=== PATIENT | male | born 1945 | race Caucasian/White ===

== ENCOUNTER 2019-01-19 06:54 | Day surgery (SDC) | payer OTHER ==
[~2019-01-19] VITALS: Ht 180.3 cm; Wt 68.0 kg
[~2019-01-19 06:54] MED LIST: ALBU6.7H IH; ALBUHFA IH; ASPI-1181 PO; CARV3.12 PO; FAMO40TA7 PO; LIDOCAINE HCL 1% 20 ML VIAL ONE; METF-444 PO; NITR0.4T50 SL; PANT40TA PO; PANT40TA25 PO; ROSU20TA30 PO; SODIUM CHLORIDE 0.9% 1000ML 1,000 ML IV ONE
[2019-01-19 07:22] VITALS: BP 135/53
[2019-01-19 08:14] VITALS: BP 120/54
[2019-01-19 08:19] VITALS: BP 115/58
[2019-01-19 08:24] VITALS: BP 121/56
[2019-01-19 08:29] VITALS: BP 122/58
[2019-01-19 08:34] VITALS: BP 120/59
--- NOTE | 2019-01-19 08:38 | NUR ---
DC PT DC HOME VIA WC, NO DISTRES SNOTED. DENIES ANY PAIN OR DISCOMFORTS. DC INSTRUCTIONS GIVEN TO PTS BROTHER EARLIER.
== END 2019-01-19 08:38 | disposition home or self-care (01) ==
LOC: ENDO 06:54 → DAH 06:54 → ENDO 08:38
PROVIDERS: ATTEND Internal Medicine
DX: K29.50 Unspecified chronic gastritis without bleeding (principal); K22.710 Barrett's esophagus with low grade dysplasia; K29.80 Duodenitis without bleeding; K31.89 Other diseases of stomach and duodenum; K26.9 Duodenal ulcer, unspecified as acute or chronic, without hemorrhage or perforation; K29.70 Gastritis, unspecified, without bleeding; K44.9 Diaphragmatic hernia without obstruction or gangrene; J44.9 Chronic obstructive pulmonary disease, unspecified; I10 Essential (primary) hypertension; I25.10 Atherosclerotic heart disease of native coronary artery without angina pectoris; F41.9 Anxiety disorder, unspecified; F32.9 Major depressive disorder, single episode, unspecified; E11.9 Type 2 diabetes mellitus without complications; I25.2 Old myocardial infarction; Z95.5 Presence of coronary angioplasty implant and graft; Z93.1 Gastrostomy status; Z79.82 Long term (current) use of aspirin; Z79.899 Other long term (current) drug therapy; Z88.8 Allergy status to other drugs, medicaments and biological substances
CPT/HCPCS: 43239; 82948 ×2; 88305; 93005; A4606; J7030

== ENCOUNTER 2019-10-24 13:16 | Observation (INO) | payer OTHER ==
[~2019-10-24] VITALS: Ht 180.3 cm; Wt 69.5 kg
[~2019-10-24 13:16] MED LIST changes: -ALBU6.7H IH; +ALBU6.7H9 IH; -ALBUHFA IH; -LIDOCAINE HCL 1% 20 ML VIAL ONE; -PANT40TA25 PO; -ROSU20TA30 PO; +ROSU20TA31 PO; -SODIUM CHLORIDE 0.9% 1000ML 1,000 ML IV ONE
[2019-10-24 13:42] LABS: BASOPHILS % (AUTO) 0.5 % (0.0-5.0); HEMATOCRIT 43.2 % (42-54); LYMPHOCYTES % (AUTO) 10.6 % (21.0-51.0); MEAN CORPUSCULAR HEMOGLOBIN 30.5 pg (27.0-33.0); MEAN CORPUSCULAR HGB CONC 33.3 g/dL (32.0-36.0); MEAN CORPUSCULAR VOLUME 91.5 fL (79-99); MONOCYTES % (AUTO) 9.5 % (3.0-13.0); NEUTROPHILS % (AUTO) 77.2 % (40.0-77.0); PLATELET COUNT (AUTO) 148 K/uL (130-400); RED BLOOD CELL COUNT(AUTO) 4.72 MIL/uL (4.50-6.20); RED CELL DISTRIBUTION WIDTH 14.3 % (11.0-15.5)
[2019-10-24 13:57] LABS: INR 0.99 (0.85-1.15); PARTIAL THROMBOPLASTIN TIME 18.9 SEC (26.3-35.5); PROTHROMBIN TIME 10.4 SEC (9.6-11.6)
[2019-10-24 14:27] LABS: B-TYPE NATRIURETIC PEPTIDE 53 pg/mL (0-100)
[2019-10-24 15:06] LABS: ALBUMIN 3.9 g/dL (3.5-5.0); BILIRUBIN,TOTAL 0.4 mg/dL (0.2-1.0); CREATININE 0.6 mg/dL (0.5-1.5); POTASSIUM 4.5 mmol/L (3.5-5.1); TOTAL PROTEIN, SERUM 7.7 g/dL (6.0-8.3)
[2019-10-24] MEDS ORDERED: NITROGLYCERIN 1GM/1 INCH PACKET TD ONE (15:23)
[2019-10-24] MEDS ORDERED: MORPHINE SULFATE 2 MG/ML 1ML SYG IV PRN (18:00)
[2019-10-24] MEDS ORDERED: NITROGLYCERIN 0.4 MG SL TAB SL PRN (18:00)
[2019-10-24] MEDS ORDERED: FAMOTIDINE/PF 20 MG/2 ML VIAL IV ONE (23:15)
[2019-10-24] MEDS ORDERED: DEXTROSE 5%-LACTATED RINGERS 1,000 ML IV ONE (23:15)
[2019-10-25] VITALS (12 sets, daily range): BP systolic 122–141; BP diastolic 60–75
[2019-10-25] MEDS: FAMOTIDINE/PF 20 MG/2 ML VIAL IV SCH ×3 (01:00→20:37)
[2019-10-25] MEDS: DEXTROSE 5%-LACTATED RINGERS 1,000 ML IV SCH ×2 (01:00→10:34)
[2019-10-25] MEDS: ALBUTEROL SULFATE 0.083% 2.5 MG/3 ML INH IH PRN ×2 (06:07→19:30)
--- NOTE | 2019-10-25 09:45 | NUR ---
TUBE FEEDING RECOMMENDATIONS PEG IN PLACE - PENDING RD RECOMMENDATIONS. LABS REVIEWED. MEDS REVIEWED. SKIN IS INTACT. RD RECOMMENDS JEVITY 1.5, BOLUS - VIA PEG TUBE; 5.5 CANS PER DAY TO MEET PT NEEDS 1 CAN AT 6AM, 1 CAN AT 10AM, 1.5 CANS AT 2PM, 1 CAN AT 6PM, 1 CAN AT 10PM FLUSH WITH 80ML BEFORE AND AFTER EACH FEEDING + 200ML/D FOR MEDS MONITOR RESIDUALS, LABS, BM RD WILL CONTINUE TO MONITOR AND FOLLOW UP, THANK YOU. Addendum: 10/25/19 at [address] Amended: Links added.
[2019-10-25] MEDS: TAMSULOSIN HCL 0.4 MG CAP.ER.24H GT SCH (10:25)
[2019-10-25] MEDS: ENOXAPARIN SODIUM 40 MG/0.4 ML SYRINGE SQ SCH (10:30)
[2019-10-25] MEDS ORDERED: SODIUM CHLORIDE 0.9% 500ML 500 ML IV SCH (13:38)
[2019-10-25] MEDS ORDERED: NITROGLYCERIN 2 MG/VIAL VIAL IV ONE (16:03)
[2019-10-25] MEDS ORDERED: FENTANYL CITRATE PF 50 MCG/1 ML 2ML VIAL ONE (16:04)
[2019-10-25] MEDS ORDERED: IOHEXOL 350 MG/ML 100ML INFUS..BTL IV ONE (16:04)
[2019-10-25] MEDS ORDERED: MIDAZOLAM HCL 1 MG/ML 2ML VIAL ONE (16:04)
[2019-10-25] MEDS ORDERED: BIVALIRUDIN 250 MG/VIAL IV ONE (16:04)
[2019-10-25] MEDS ORDERED: LIDOCAINE HCL 2% 20ML ONE (16:04)
[2019-10-25] MEDS ORDERED: IOHEXOL-350 50ML VIAL IV ONE ×2 (16:04→16:42)
[2019-10-25] MEDS ORDERED: SODIUM CHLORIDE 0.9% 1000ML 1,000 ML IV SCH (16:59)
[2019-10-25] MEDS ORDERED: NITROGLYCERIN 0.4 MG SL TAB SL PRN (17:00)
[2019-10-25] MEDS ORDERED: METOPROLOL TARTRATE 1 MG/ML 5ML VIAL IV PRN (17:00)
[2019-10-25] MEDS ORDERED: IPRATROPIUM/ALBUTEROL SULFATE 3 ML SOLUTION IH ONE (19:17)
[2019-10-26] VITALS: BP 126/55
[2019-10-26 04:00] VITALS: BP 109/51
[2019-10-26] MEDS: ALBUTEROL SULFATE 0.083% 2.5 MG/3 ML INH IH PRN (07:04)
[2019-10-26 08:00] VITALS: BP 115/59
[2019-10-26] MEDS ORDERED: ISOS30TA6 PO (08:09)
[2019-10-26] MEDS: ENOXAPARIN SODIUM 40 MG/0.4 ML SYRINGE SQ SCH (09:00)
[2019-10-26] MEDS: FAMOTIDINE/PF 20 MG/2 ML VIAL IV SCH (09:00)
[2019-10-26] MEDS: TAMSULOSIN HCL 0.4 MG CAP.ER.24H GT SCH (09:00)
[2019-10-26 12:00] VITALS: BP 130/60
[2019-10-26] MEDS ORDERED: SUCR1TAB2 PO (12:54)
[2019-10-26] MEDS ORDERED: LANS30CA55 PO (12:54)
--- NOTE | 2019-10-26 13:29 | NUR ---
CHART REVIEWED, PT W DC ORDER, OBVS STATUS NO CM TRIGGERS, NO CONCERNS VOICED, PATIENT INDP, DETAILED CM ASSESSMENT DEFERRED AT THIS TIME Addendum: 10/26/19 at 1331 by BERONICA MELARA RN CM Amended: Links added.
== END 2019-10-26 13:38 | disposition home or self-care (01) ==
LOC: EDH 13:16 → INTOOBSV 15:00 → EDHIP 15:00 → 4CH 10-25 00:24
PROVIDERS: ADMIT Internal Medicine; ATTEND Internal Medicine
DX: I20.0 Unstable angina (principal); I25.2 Old myocardial infarction; I71.2 Thoracic aortic aneurysm, without rupture; E11.9 Type 2 diabetes mellitus without complications; I10 Essential (primary) hypertension; E78.5 Hyperlipidemia, unspecified; K21.9 Gastro-esophageal reflux disease without esophagitis; Z85.818 Personal history of malignant neoplasm of other sites of lip, oral cavity, and pharynx; Z95.5 Presence of coronary angioplasty implant and graft; Z88.6 Allergy status to analgesic agent; Z88.8 Allergy status to other drugs, medicaments and biological substances; Z87.891 Personal history of nicotine dependence; Z85.21 Personal history of malignant neoplasm of larynx
CPT/HCPCS: 36415; 71045; 80053; 82550; 83880; 84484 ×4; 85025; 85610; 85730; 93005 ×4; 93458; 94640 ×3; 94664; 96372; 96374; 96376; 99285; C1894 ×2; G0378 ×10; J1644; J1650; J3490 ×8; J7040; Q9965; Q9967 ×2; J0583; J2250; J3010

== ENCOUNTER 2022-12-29 14:16 | Emergency (ER) | payer OTHER ==
[~2022-12-29] VITALS: Ht 177.8 cm; Wt 61.2 kg
[~2022-12-29 14:16] MED LIST changes: +ALBU6.7H14 IH; -ALBU6.7H9 IH; -ASPI-1181 PO; +ASPI-1443 PO; -CARV3.12 PO; +ESOM40SU PO; -FAMO40TA7 PO; +FLUC150T PO; +LEVO-70 PO; -METF-444 PO; -NITR0.4T50 SL; -PANT40TA PO; +PRED20B PO; +SUCR1TAB2 PO; +TAMS-1 PO; +UMEC1DIS IH
[2022-12-29 14:41] LABS: HEMATOCRIT 36.9 % (42-54); MEAN CORPUSCULAR HEMOGLOBIN 29.1 pg (27.0-33.0); MEAN CORPUSCULAR HGB CONC 32.5 g/dL (32.0-36.0); MEAN CORPUSCULAR VOLUME 89.3 fL (79-99); RED BLOOD CELL COUNT(AUTO) 4.13 MIL/uL (4.50-6.20); WHITE BLOOD COUNT (AUTO) 11.1 K/uL (4.8-10.8)
[2022-12-29 14:50] LABS: CREATININE 0.6 mg/dL (0.5-1.5); POTASSIUM 4.4 mmol/L (3.5-5.1)
[2022-12-29 14:54] LABS: ALBUMIN 3.3 g/dL (3.5-5.0); TOTAL PROTEIN, SERUM 8.3 g/dL (6.0-8.3)
[2022-12-29 15:12] LABS: ABG BASE EXCESS 2.4 mmol/L (-2.0-3.0); ABG HCO3 24.9 mmol/L (21.0-28.0); ABG OXYGEN SATURATION 93.6 % (95.0-99.0); ABG PCO2 33 mmHg (35-48)
[2022-12-29 15:55] LABS: INFLUENZA TYPE A NEGATIVE FOR TYPE A (NEG); INFLUENZA TYPE B NEGATIVE FOR TYPE B (NEG)
[2022-12-29] MEDS ORDERED: LEVOFLOXACIN 750 MG TABLET PO SCH (16:30)
[2022-12-29] MEDS ORDERED: LEVO750T68 PO (17:33)
[2022-12-29 17:37] VITALS: BP 140/75
[2022-12-29 17:41] LABS: APPEARANCE,URINE CLOUDY (CLEAR); BILIRUBIN,URINE NEGATIVE (NEGATIVE); COLOR,URINE LIGHT-YELLOW (YELLOW); GLUCOSE, URINE (UA) NEGATIVE (NEGATIVE); KETONES,URINE NEGATIVE (NEGATIVE); LEUKOCYTE ESTERASE ,URINE NEGATIVE Leu/uL (NEGATIVE); NITRATE,URINE NEGATIVE (NEGATIVE); OCCULT BLOOD,URINE NEGATIVE (NEGATIVE); PH,URINE 8.5 (5.0-8.0); PROTEIN,URINE 30 mg/dL (NEGATIVE); UROBILINOGEN,URINE 0.2 mg/dL (0.2-1.0)
[2022-12-29 17:48] LABS: WBC,URINE 0-1 /HPF (0-1)
== END 2022-12-29 18:08 | disposition home or self-care (01) ==
LOC: EDH 14:16
DX: J22 Unspecified acute lower respiratory infection (principal); I10 Essential (primary) hypertension; E78.00 Pure hypercholesterolemia, unspecified; E11.9 Type 2 diabetes mellitus without complications; J44.9 Chronic obstructive pulmonary disease, unspecified; Z20.822 Contact with and (suspected) exposure to COVID-19; Z88.8 Allergy status to other drugs, medicaments and biological substances; Z79.899 Other long term (current) drug therapy
CPT/HCPCS: 99285; 71045; 87635; 80053; 82803; 83880; 85027; 87804 ×2; 81001; 36415; 93005; 36600; 84145; C9803

== ENCOUNTER 2023-06-12 05:16 | Inpatient (IN) | payer OTHER ==
[~2023-06-12] VITALS: Ht 177.8 cm; Wt 63.6 kg
[~2023-06-12 05:16] MED LIST changes: +ASPI-1443 PEG; -ASPI-1443 PO; +ESOM40SU PEG; -ESOM40SU PO; +FERR324T23 PO; -FLUC150T PO; +FLUT15.845 NS; -LEVO-70 PO; +LIFI1DRO OU; +NITR0.4T50 SL; +POLY30DR OP; -PRED20B PO; -ROSU20TA31 PO; +ROSU20TA73 PEG; -SUCR1TAB2 PO; +TAMS-1 PEG; -TAMS-1 PO
[2023-06-12] MEDS ORDERED: ACETAMINOPHEN 500 MG TABLET ONE (05:23)
[2023-06-12 05:46] LABS: BASOPHILS # (AUTO) 0.02 K/uL (0.00-0.20); BASOPHILS % (AUTO) 0.2 % (0.0-5.0); EOSINOPHILS # (AUTO) 0.01 K/uL (0.00-0.70); EOSINOPHILS % (AUTO) 0.1 % (0.0-8.0); HEMATOCRIT 32.4 % (42-54); IMMATURE GRANULOCYTE ABSOLUTE 0.05 K/uL (0-1); LYMPHOCYTES # (AUTO) 0.2 K/uL (1.0-4.8); LYMPHOCYTES % (AUTO) 1.7 % (21.0-51.0); MEAN CORPUSCULAR HEMOGLOBIN 29.8 pg (27.0-33.0); MEAN CORPUSCULAR VOLUME 87.8 fL (79-99); MONOCYTES # (AUTO) 1.5 K/uL (0.1-1.0); MONOCYTES % (AUTO) 16.2 % (3.0-13.0); NEUTROPHILS # (AUTO) 7.5 K/uL (1.8-7.7); NEUTROPHILS % (AUTO) 81.3 % (40.0-77.0); PLATELET COUNT (AUTO) 238 K/uL (130-400); RED BLOOD CELL COUNT(AUTO) 3.69 MIL/uL (4.50-6.20); WHITE BLOOD COUNT (AUTO) 9.3 K/uL (4.8-10.8)
[2023-06-12] MEDS ORDERED: ACETAMINOPHEN 500 MG TABLET PO ONE (06:00)
[2023-06-12] MEDS ORDERED: IPRATROPIUM/ALBUTEROL SULFATE 3 ML SOLUTION IH ONE (06:00)
[2023-06-12 06:05] LABS: ALBUMIN 2.4 g/dL (3.5-5.0); CREATININE 0.6 mg/dL (0.5-1.5)
[2023-06-12 06:10] LABS: WBC MORPHOLOGY CONSISTENT W/DIFF
[2023-06-12 06:13] LABS: BILIRUBIN,TOTAL 0.6 mg/dL (0.2-1.0); TOTAL PROTEIN, SERUM 6.7 g/dL (6.0-8.3)
[2023-06-12 06:15] LABS: B-TYPE NATRIURETIC PEPTIDE 1490 pg/mL (0-100)
[2023-06-12 06:21] VITALS: PULSE 85; RESP 18
[2023-06-12 06:27] LABS: SARS-CoV-2, RNA, NAAT NEGATIVE SARS CoV-2 (NEGATIVE)
[2023-06-12 06:28] LABS: RAPID GROUP A STREP negative (NEGATIVE)
[2023-06-12] MEDS ORDERED: POTASSIUM CHLORIDE 10% ELIXIR 20 MEQ/15 ML UDCUP PO ONE (06:30)
[2023-06-12 06:35] LABS: INFLUENZA TYPE A Negative For Type A (NEGATIVE); INFLUENZA TYPE B Negative For Type B (NEGATIVE)
[2023-06-12 07:20] VITALS: TEMP 98.1
[2023-06-12] MEDS ORDERED: IOHEXOL 350 MG/ML 100ML INFUS..BTL IV ONE (07:26)
[2023-06-12 09:45] LABS: APPEARANCE,URINE CLEAR (CLEAR); BILIRUBIN,URINE NEGATIVE (NEGATIVE); GLUCOSE, URINE (UA) NEGATIVE (NEGATIVE); KETONES,URINE 5 mg/dL (NEGATIVE); LEUKOCYTE ESTERASE ,URINE NEGATIVE Leu/uL (NEGATIVE); NITRATE,URINE NEGATIVE (NEGATIVE); PH,URINE 6.5 (5.0-8.0); PROTEIN,URINE 30 mg/dL (NEGATIVE); UROBILINOGEN,URINE 0.2 mg/dL (0.2-1.0)
[2023-06-12 09:47] LABS: ADD UA MICROSCOPIC YES; COLOR,URINE YELLOW (YELLOW)
[2023-06-12 09:49] LABS: RBC,URINE 0-1 /HPF (0-1); WBC,URINE 0-1 /HPF (0-1)
[2023-06-12 09:53] LABS: CREATININE 0.6 mg/dL (0.5-1.5); POTASSIUM 3.3 mmol/L (3.5-5.1)
[2023-06-12] MEDS ORDERED: 0.9%NACL 50ML IV SCH (10:00)
[2023-06-12] MEDS ORDERED: IPRATROPIUM/ALBUTEROL SULFATE 3 ML SOLUTION IH PRN (10:00)
[2023-06-12] MEDS ORDERED: ZOSYN 3.375GM +NS 50ML IVPB SCH (10:00)
[2023-06-12] MEDS ORDERED: 0.9%NACL 1000ML 500 ML IV ONE (10:00)
[2023-06-12] MEDS ORDERED: SODIUM CHLORIDE 3% FOR INHALATION 4 ML/AMP VIAL.NEB IH ONE ×2 (10:11→18:16)
[2023-06-12 10:43] VITALS: RESP 18; O2SAT 99
[2023-06-12] MEDS: DOXYCYCLINE 100MG+NS 250ML IV SCH ×2 (11:43→20:54)
[2023-06-12 13:11] LABS: HEMOGLOBIN A1C 6.4 % (4.0-6.0)
[2023-06-12] MEDS ORDERED: AMOX1TAB16 PO (14:53)
[2023-06-12] MEDS ORDERED: ROSU40TA21 PO (14:53)
[2023-06-12] MEDS ORDERED: TAMS-1 PO (14:53)
[2023-06-12] MEDS ORDERED: ASPI-1197 PO (14:53)
[2023-06-12] MEDS ORDERED: UMEC1DIS IH (14:56)
[2023-06-12] MEDS ORDERED: SUCR1ORA15 PO (14:56)
[2023-06-12] MEDS ORDERED: VILANTEROL TR IH SCH (18:00)
[2023-06-12] MEDS ORDERED: PHARMACY COMMUNICATION MISC SCH (18:00)
[2023-06-12] MEDS ORDERED: ASPIRIN 81MG CHEW TAB PEG ONE (18:00)
[2023-06-12] MEDS ORDERED: UMECLIDINIUM BRM IH SCH (18:00)
[2023-06-12] MEDS ORDERED: [UNRECOGNIZED DRUG - REMARK] MISC SCH (18:30)
[2023-06-12] MEDS ORDERED: ASPIRIN 81 MG EC TAB PEG ONE (19:00)
[2023-06-12] MEDS ORDERED: COMPOUND IV MISC 1 EACH IVSOLN MISC PRN (19:00)
[2023-06-12] MEDS: MEROPENEM 1 GM in 0.9%NACL 100ML 100 ML IVPB SCH (19:00)
[2023-06-12 19:26] VITALS: PULSE 100; RESP 20; O2SAT 95
[2023-06-12] MEDS: ASPIRIN 81MG CHEW TAB PEG SCH (20:53)
[2023-06-12] MEDS: ATORVASTATIN 40 MG TABLET PEG SCH (20:53)
[2023-06-12] MEDS: SUCRALFATE 1 GM TABLET PEG SCH (20:53)
[2023-06-12] MEDS ORDERED: TAMSULOSIN HCL 0.4 MG CAP.ER.24H PEG SCH (21:00)
[2023-06-12] MEDS ORDERED: MEROPENEM 1 GM VIAL ONE (21:03)
[2023-06-13] VITALS (9 sets, daily range): BP systolic 110–126; BP diastolic 50–76; PULSE 83–101; RESP 18–22; O2SAT 93–95
[2023-06-13] MEDS: IPRATROPIUM/ALBUTEROL SULFATE 3 ML SOLUTION IH SCH ×5 (01:06→23:18)
[2023-06-13 01:20] LABS: ABG BASE EXCESS 2.9 mmol/L (-2.0-3.0); ABG HCO3 26.2 mmol/L (21.0-28.0); ABG OXYGEN SATURATION 95.5 % (95.0-99.0); ABG PCO2 36 mmHg (35-48); ABG PH 7.477 (7.35-7.450); PO2, ARTERIAL BG 72.2 mmHg (83.0-108.0); VENT MODE, BG NC (ROOM AIR)
[2023-06-13] MEDS ORDERED: MEROPENEM 1 GM VIAL ONE ×2 (02:22→12:28)
[2023-06-13] MEDS: MEROPENEM 1 GM in 0.9%NACL 100ML 100 ML IVPB SCH ×3 (03:18→20:10)
[2023-06-13 09:50] LABS: BASOPHILS # (AUTO) 0.02 K/uL (0.00-0.20); BASOPHILS % (AUTO) 0.2 % (0.0-5.0); EOSINOPHILS # (AUTO) 0.01 K/uL (0.00-0.70); EOSINOPHILS % (AUTO) 0.1 % (0.0-8.0); HEMATOCRIT 29.6 % (42-54); IMMATURE GRANULOCYTE ABSOLUTE 0.05 K/uL (0-1); LYMPHOCYTES # (AUTO) 0.2 K/uL (1.0-4.8); LYMPHOCYTES % (AUTO) 2.8 % (21.0-51.0); MEAN CORPUSCULAR HEMOGLOBIN 29.8 pg (27.0-33.0); MEAN CORPUSCULAR HGB CONC 33.4 g/dL (32.0-36.0); MEAN CORPUSCULAR VOLUME 89.2 fL (79-99); MONOCYTES # (AUTO) 1.4 K/uL (0.1-1.0); MONOCYTES % (AUTO) 16.8 % (3.0-13.0); NEUTROPHILS # (AUTO) 6.6 K/uL (1.8-7.7); NEUTROPHILS % (AUTO) 79.5 % (40.0-77.0); PLATELET COUNT (AUTO) 243 K/uL (130-400); RED BLOOD CELL COUNT(AUTO) 3.32 MIL/uL (4.50-6.20); RED CELL DISTRIBUTION WIDTH 15.1 % (11.0-15.5); WHITE BLOOD COUNT (AUTO) 8.3 K/uL (4.8-10.8)
[2023-06-13] MEDS: PANTOPRAZOLE 40 MG/VIAL IVP SCH (10:05)
[2023-06-13] MEDS: DOXYCYCLINE 100MG+NS 250ML IV SCH ×2 (10:05→20:09)
[2023-06-13] MEDS: SUCRALFATE 1 GM TABLET PEG SCH ×4 (10:05→20:58)
[2023-06-13 10:07] LABS: CREATININE 0.5 mg/dL (0.5-1.5); MAGNESIUM 2.1 mg/dL (1.80-2.40)
[2023-06-13 10:08] LABS: POTASSIUM 2.9 mmol/L (3.5-5.1)
[2023-06-13] MEDS: ACETAMINOPHEN 500 MG TABLET GT PRN ×2 (10:17→20:53)
[2023-06-13] MEDS: POTASSIUM CHLORIDE 20MEQ/100ML 100 ML IV PRN ×3 (10:17→23:16)
[2023-06-13] MEDS ORDERED: OXYMETAZOLINE HCL SPRAY 15 ML BOTTLE ONE (15:40)
[2023-06-13] MEDS: ATORVASTATIN 40 MG TABLET PEG SCH (20:10)
[2023-06-13] MEDS ORDERED: OXYMETAZOLINE HCL SPRAY 15 ML BOTTLE NS SCH (21:00)
[2023-06-14] VITALS (11 sets, daily range): BP systolic 126–137; BP diastolic 62–79; PULSE 80–115; RESP 18–26; O2SAT 94–96
[2023-06-14] MEDS: MEROPENEM 1 GM in 0.9%NACL 100ML 100 ML IVPB SCH ×3 (02:59→18:21)
[2023-06-14 04:08] LABS: BASOPHILS # (AUTO) 0.02 K/uL (0.00-0.20); BASOPHILS % (AUTO) 0.2 % (0.0-5.0); EOSINOPHILS # (AUTO) 0.02 K/uL (0.00-0.70); EOSINOPHILS % (AUTO) 0.2 % (0.0-8.0); HEMATOCRIT 29.8 % (42-54); IMMATURE GRANULOCYTE ABSOLUTE 0.04 K/uL (0-1); LYMPHOCYTES # (AUTO) 0.3 K/uL (1.0-4.8); MEAN CORPUSCULAR HEMOGLOBIN 30.6 pg (27.0-33.0); MEAN CORPUSCULAR HGB CONC 34.6 g/dL (32.0-36.0); MEAN CORPUSCULAR VOLUME 88.4 fL (79-99); MONOCYTES # (AUTO) 1.5 K/uL (0.1-1.0); NEUTROPHILS # (AUTO) 6.8 K/uL (1.8-7.7); NEUTROPHILS % (AUTO) 79.1 % (40.0-77.0); PLATELET COUNT (AUTO) 288 K/uL (130-400); RED BLOOD CELL COUNT(AUTO) 3.37 MIL/uL (4.50-6.20); RED CELL DISTRIBUTION WIDTH 15.1 % (11.0-15.5); WHITE BLOOD COUNT (AUTO) 8.6 K/uL (4.8-10.8)
[2023-06-14 04:15] LABS: CREATININE 0.5 mg/dL (0.5-1.5); MAGNESIUM 2.1 mg/dL (1.80-2.40); POTASSIUM 3.1 mmol/L (3.5-5.1)
[2023-06-14] MEDS: IPRATROPIUM/ALBUTEROL SULFATE 3 ML SOLUTION IH SCH ×4 (06:33→23:29)
[2023-06-14] MEDS: ASPIRIN 81MG CHEW TAB PEG SCH (10:27)
[2023-06-14] MEDS: SUCRALFATE 1 GM TABLET PEG SCH ×4 (10:27→20:35)
[2023-06-14] MEDS: PANTOPRAZOLE 40 MG/VIAL IVP SCH (10:27)
[2023-06-14] MEDS: DOXYCYCLINE 100MG+NS 250ML IV SCH (10:27)
[2023-06-14] MEDS: OXYMETAZOLINE HCL SPRAY 15 ML BOTTLE NS SCH ×3 (10:28→20:35)
[2023-06-14] MEDS: POTASSIUM CHLORIDE 20MEQ/100ML 100 ML IV PRN (10:28)
[2023-06-14] MEDS: ACETAMINOPHEN 500 MG TABLET GT PRN (15:07)
[2023-06-14] MEDS: ATORVASTATIN 40 MG TABLET PEG SCH (20:35)
[2023-06-15] VITALS (15 sets, daily range): BP systolic 115–140; BP diastolic 48–66; PULSE 81–103; RESP 18–26; O2SAT 94–98
[2023-06-15] MEDS: DOXYCYCLINE 100MG+NS 250ML IV SCH ×3 (00:28→22:40)
[2023-06-15] MEDS: MEROPENEM 1 GM in 0.9%NACL 100ML 100 ML IVPB SCH ×3 (03:02→17:51)
[2023-06-15] MEDS: IPRATROPIUM/ALBUTEROL SULFATE 3 ML SOLUTION IH SCH ×4 (06:21→23:05)
[2023-06-15] MEDS: POTASSIUM CHLORIDE 20MEQ/100ML 100 ML IV PRN (06:33)
[2023-06-15] MEDS: OXYMETAZOLINE HCL SPRAY 15 ML BOTTLE NS SCH ×3 (09:00→20:03)
[2023-06-15] MEDS: PANTOPRAZOLE 40 MG/VIAL IVP SCH (09:25)
[2023-06-15] MEDS: SUCRALFATE 1 GM TABLET PEG SCH ×4 (09:26→20:02)
[2023-06-15] MEDS: ASPIRIN 81MG CHEW TAB PEG SCH (09:26)
[2023-06-15] MEDS: ACETAMINOPHEN 500 MG TABLET GT PRN (17:56)
[2023-06-15] MEDS ORDERED: POTASSIUM CHLORIDE 10% ELIXIR 20 MEQ/15 ML UDCUP PO PRN (18:30)
[2023-06-15] MEDS: ATORVASTATIN 40 MG TABLET PEG SCH (20:02)
[2023-06-16] VITALS (7 sets, daily range): BP systolic 129–140; BP diastolic 57–60; PULSE 80–96; RESP 17–20; O2SAT 94–100
[2023-06-16] MEDS: MEROPENEM 1 GM in 0.9%NACL 100ML 100 ML IVPB SCH ×2 (01:52→11:33)
[2023-06-16 04:02] LABS: POTASSIUM 3.9 mmol/L (3.5-5.1)
[2023-06-16] MEDS: IPRATROPIUM/ALBUTEROL SULFATE 3 ML SOLUTION IH SCH ×2 (07:18→11:41)
[2023-06-16 07:35] LABS: BASOPHILS # (AUTO) 0.02 K/uL (0.00-0.20); BASOPHILS % (AUTO) 0.2 % (0.0-5.0); EOSINOPHILS # (AUTO) 0.03 K/uL (0.00-0.70); EOSINOPHILS % (AUTO) 0.4 % (0.0-8.0); IMMATURE GRANULOCYTE ABSOLUTE 0.04 K/uL (0-1); LYMPHOCYTES # (AUTO) 0.3 K/uL (1.0-4.8); LYMPHOCYTES % (AUTO) 3.4 % (21.0-51.0); MEAN CORPUSCULAR HEMOGLOBIN 30.3 pg (27.0-33.0); MEAN CORPUSCULAR HGB CONC 33.2 g/dL (32.0-36.0); MEAN CORPUSCULAR VOLUME 91.2 fL (79-99); MONOCYTES # (AUTO) 1.2 K/uL (0.1-1.0); MONOCYTES % (AUTO) 14.2 % (3.0-13.0); NEUTROPHILS # (AUTO) 6.8 K/uL (1.8-7.7); NEUTROPHILS % (AUTO) 81.3 % (40.0-77.0); PLATELET COUNT (AUTO) 404 K/uL (130-400); RED CELL DISTRIBUTION WIDTH 15.4 % (11.0-15.5); WHITE BLOOD COUNT (AUTO) 8.3 K/uL (4.8-10.8)
[2023-06-16 07:55] LABS: CREATININE 0.6 mg/dL (0.5-1.5)
[2023-06-16] MEDS: DOXYCYCLINE 100MG+NS 250ML IV SCH (09:10)
[2023-06-16] MEDS: SUCRALFATE 1 GM TABLET PEG SCH ×2 (09:10→12:41)
[2023-06-16] MEDS: PANTOPRAZOLE 40 MG/VIAL IVP SCH (09:10)
[2023-06-16] MEDS: OXYMETAZOLINE HCL SPRAY 15 ML BOTTLE NS SCH ×2 (09:11→12:41)
[2023-06-16] MEDS: ASPIRIN 81MG CHEW TAB PEG SCH (09:11)
[2023-06-16] MEDS ORDERED: LEVO-70 PO (14:02)
== END 2023-06-16 16:20 | disposition home or self-care (01) | DRG 280 ==
LOC: EDH 05:16 → EDHIP 09:58 → 4AH 06-13 21:02
PROVIDERS: ADMIT Internal Medicine; ATTEND Internal Medicine
DX: I11.0 Hypertensive heart disease with heart failure (principal); I21.A1 Myocardial infarction type 2; I50.31 Acute diastolic (congestive) heart failure; J18.9 Pneumonia, unspecified organism; J96.21 Acute and chronic respiratory failure with hypoxia; J44.1 Chronic obstructive pulmonary disease with (acute) exacerbation; E87.1 Hypo-osmolality and hyponatremia; E44.0 Moderate protein-calorie malnutrition; C34.11 Malignant neoplasm of upper lobe, right bronchus or lung; R64 Cachexia; E87.6 Hypokalemia; K22.70 Barrett's esophagus without dysplasia; Z68.20 Body mass index [BMI] 20.0-20.9, adult; E11.9 Type 2 diabetes mellitus without complications; K21.9 Gastro-esophageal reflux disease without esophagitis; E78.00 Pure hypercholesterolemia, unspecified; I25.10 Atherosclerotic heart disease of native coronary artery without angina pectoris; N40.0 Benign prostatic hyperplasia without lower urinary tract symptoms; Z82.49 Family history of ischemic heart disease and other diseases of the circulatory system; Z83.3 Family history of diabetes mellitus; Z85.118 Personal history of other malignant neoplasm of bronchus and lung; Z85.819 Personal history of malignant neoplasm of unspecified site of lip, oral cavity, and pharynx; Z85.828 Personal history of other malignant neoplasm of skin; Z87.891 Personal history of nicotine dependence; Z88.6 Allergy status to analgesic agent; Z90.2 Acquired absence of lung [part of]; Z95.1 Presence of aortocoronary bypass graft; Z95.5 Presence of coronary angioplasty implant and graft; Z99.81 Dependence on supplemental oxygen
CPT/HCPCS: 36415; 36600; 71045; 71270; 74177; 80048; 80053; 81001; 82306; 82803; 82948; 83036; 83605; 83735; 83880; 84132; 84484; 85025; 87040; 87046; 87071; 87077; 87186; 87205; 87324; 87635; 87804; 87880; 93005; 93306; 94640; 94664; 94668; 97039; C9113; C9803; G0378; J2185; J2543; J3480; J3490; J7030; Q9967

== ENCOUNTER 2023-07-24 16:19 | Observation (INO) | payer OTHER ==
[~2023-07-24] VITALS: Ht 177.8 cm; Wt 60.9 kg
[~2023-07-24 16:19] MED LIST changes: -ALBU6.7H14 IH; +ASPI-1197 PO; -ASPI-1443 PEG; -ESOM40SU PEG; -FERR324T23 PO; -FLUT15.845 NS; +LEVO-70 PO; -LIFI1DRO OU; -NITR0.4T50 SL; -POLY30DR OP; -ROSU20TA73 PEG; +ROSU40TA21 PO; +SUCR1ORA15 PO; -TAMS-1 PEG; +TAMS-1 PO
[2023-07-24 17:00] LABS: BASOPHILS # (AUTO) 0.02 K/uL (0.00-0.20); BASOPHILS % (AUTO) 0.4 % (0.0-5.0); EOSINOPHILS # (AUTO) 0.07 K/uL (0.00-0.70); EOSINOPHILS % (AUTO) 1.2 % (0.0-8.0); HEMATOCRIT 33.9 % (42-54); IMMATURE GRANULOCYTE ABSOLUTE 0.01 K/uL (0-1); LYMPHOCYTES # (AUTO) 0.5 K/uL (1.0-4.8); LYMPHOCYTES % (AUTO) 8.1 % (21.0-51.0); MEAN CORPUSCULAR HEMOGLOBIN 28.3 pg (27.0-33.0); MEAN CORPUSCULAR HGB CONC 30.7 g/dL (32.0-36.0); MEAN CORPUSCULAR VOLUME 92.4 fL (79-99); MONOCYTES # (AUTO) 0.5 K/uL (0.1-1.0); MONOCYTES % (AUTO) 8.8 % (3.0-13.0); NEUTROPHILS # (AUTO) 4.6 K/uL (1.8-7.7); NEUTROPHILS % (AUTO) 81.3 % (40.0-77.0); PLATELET COUNT (AUTO) 304 K/uL (130-400); RED BLOOD CELL COUNT(AUTO) 3.67 MIL/uL (4.50-6.20); RED CELL DISTRIBUTION WIDTH 15.8 % (11.0-15.5); WHITE BLOOD COUNT (AUTO) 5.7 K/uL (4.8-10.8)
[2023-07-24 17:02] LABS: APPEARANCE,URINE CLEAR (CLEAR); BILIRUBIN,URINE NEGATIVE (NEGATIVE); GLUCOSE, URINE (UA) NEGATIVE (NEGATIVE); KETONES,URINE NEGATIVE (NEGATIVE); LEUKOCYTE ESTERASE ,URINE NEGATIVE Leu/uL (NEGATIVE); NITRATE,URINE NEGATIVE (NEGATIVE); OCCULT BLOOD,URINE NEGATIVE (NEGATIVE); PROTEIN,URINE NEGATIVE (NEGATIVE); UROBILINOGEN,URINE 0.2 mg/dL (0.2-1.0)
[2023-07-24 17:03] LABS: ADD UA MICROSCOPIC YES; COLOR,URINE STRAW (YELLOW)
[2023-07-24 17:05] LABS: RBC,URINE 0-1 /HPF (0-1); WBC,URINE 0-1 /HPF (0-1)
[2023-07-24 17:09] LABS: CREATININE 0.6 mg/dL (0.5-1.5); POTASSIUM 3.6 mmol/L (3.5-5.1)
[2023-07-24 17:13] LABS: ALBUMIN 2.8 g/dL (3.5-5.0); BILIRUBIN,TOTAL 0.4 mg/dL (0.2-1.0)
[2023-07-25] MEDS ORDERED: ACETAMINOPHEN 325 MG TAB PO PRN ×2
[2023-07-25] MEDS ORDERED: HYDRALAZINE 20MG/ML VIAL IV PRN
[2023-07-25] MEDS ORDERED: ONDANSETRON 4MG INJ IV PRN
[2023-07-25 02:00] VITALS: BP 140/66; PULSE 99; RESP 16
[2023-07-25 02:26] VITALS: O2SAT 96
[2023-07-25] MEDS ORDERED: ALBU2.5V2 IH (02:47)
[2023-07-25] MEDS ORDERED: [UNRECOGNIZED DRUG - CODE] PO (02:47)
[2023-07-25] MEDS ORDERED: FERR324T23 PO (02:47)
[2023-07-25 06:00] VITALS: BP 144/71; PULSE 81; RESP 18
[2023-07-25 07:14] VITALS: BP 131/64; PULSE 75; RESP 19
[2023-07-25 07:16] LABS: BASOPHILS # (AUTO) 0.03 K/uL (0.00-0.20); BASOPHILS % (AUTO) 0.6 % (0.0-5.0); EOSINOPHILS # (AUTO) 0.09 K/uL (0.00-0.70); EOSINOPHILS % (AUTO) 1.7 % (0.0-8.0); HEMATOCRIT 30.1 % (42-54); IMMATURE GRANULOCYTE ABSOLUTE 0.01 K/uL (0-1); LYMPHOCYTES # (AUTO) 0.4 K/uL (1.0-4.8); LYMPHOCYTES % (AUTO) 7.7 % (21.0-51.0); MEAN CORPUSCULAR HEMOGLOBIN 28.3 pg (27.0-33.0); MEAN CORPUSCULAR HGB CONC 30.9 g/dL (32.0-36.0); MEAN CORPUSCULAR VOLUME 91.5 fL (79-99); MONOCYTES # (AUTO) 0.6 K/uL (0.1-1.0); NEUTROPHILS # (AUTO) 4.2 K/uL (1.8-7.7); NEUTROPHILS % (AUTO) 78.8 % (40.0-77.0); PLATELET COUNT (AUTO) 284 K/uL (130-400); RED BLOOD CELL COUNT(AUTO) 3.29 MIL/uL (4.50-6.20); RED CELL DISTRIBUTION WIDTH 15.8 % (11.0-15.5); WHITE BLOOD COUNT (AUTO) 5.4 K/uL (4.8-10.8)
[2023-07-25] MEDS ORDERED: FAMOTIDINE 20MG TAB PO SCH (09:00)
[2023-07-25] MEDS ORDERED: LOSARTAN 25 MG TABLET PO SCH (09:00)
[2023-07-25 09:08] LABS: HEMOGLOBIN A1C 5.7 % (4.0-6.0)
[2023-07-25 09:09] LABS: ALBUMIN 2.3 g/dL (3.5-5.0); BILIRUBIN,TOTAL 0.4 mg/dL (0.2-1.0); CREATININE 0.5 mg/dL (0.5-1.5); MAGNESIUM 1.8 mg/dL (1.80-2.40); POTASSIUM 4.2 mmol/L (3.5-5.1); TOTAL PROTEIN, SERUM 7.5 g/dL (6.0-8.3)
[2023-07-25 10:00] VITALS: O2SAT 94
[2023-07-25 10:47] VITALS: BP 135/69; PULSE 78; RESP 19
== END 2023-07-25 15:05 | disposition home or self-care (01) ==
LOC: EDH 16:19 → EDHIP 23:43 → 3AH 07-25 02:05
PROVIDERS: ADMIT Hospitalist; ATTEND Hospitalist
DX: D64.9 Anemia, unspecified (principal); E44.0 Moderate protein-calorie malnutrition; E11.65 Type 2 diabetes mellitus with hyperglycemia; R42 Dizziness and giddiness; I11.9 Hypertensive heart disease without heart failure; J44.9 Chronic obstructive pulmonary disease, unspecified; I25.10 Atherosclerotic heart disease of native coronary artery without angina pectoris; K21.9 Gastro-esophageal reflux disease without esophagitis; K22.70 Barrett's esophagus without dysplasia; Z68.1 Body mass index [BMI] 19.9 or less, adult; Z85.118 Personal history of other malignant neoplasm of bronchus and lung; Z87.891 Personal history of nicotine dependence; Z88.6 Allergy status to analgesic agent; Z88.5 Allergy status to narcotic agent; Z88.8 Allergy status to other drugs, medicaments and biological substances; Z79.82 Long term (current) use of aspirin; Z85.828 Personal history of other malignant neoplasm of skin; Z95.5 Presence of coronary angioplasty implant and graft
CPT/HCPCS: 99285; 83735 ×2; 84484 ×3; 80053 ×2; 83880; 85025 ×2; 81001; 36415 ×2; 71045; 93005; 83036; G0378 ×15

== ENCOUNTER → 2023-07-29 | Outpatient (CLI) | payer OTHER ==
[~2023-07-29] MED LIST changes: +ALBU2.5V2 IH; +FERR324T23 PO; -LEVO-70 PO; +[UNRECOGNIZED DRUG - CODE] PO
== END | disposition home or self-care (01) ==
LOC: RAH 09:22
PROVIDERS: ATTEND Internal Medicine
DX: R60.0 Localized edema (principal)
CPT/HCPCS: 93925; 93970

== ENCOUNTER 2023-11-22 10:09 | Emergency (ER) | payer OTHER ==
[~2023-11-22] VITALS: Ht 177.8 cm; Wt 63.0 kg
[2023-11-22 11:17] LABS: BASOPHILS # (AUTO) 0.03 K/uL (0.00-0.20); BASOPHILS % (AUTO) 0.4 % (0.0-5.0); EOSINOPHILS # (AUTO) 0.07 K/uL (0.00-0.70); EOSINOPHILS % (AUTO) 0.8 % (0.0-8.0); HEMATOCRIT 38.6 % (42-54); IMMATURE GRANULOCYTE ABSOLUTE 0.04 K/uL (0-1); LYMPHOCYTES # (AUTO) 0.4 K/uL (1.0-4.8); MEAN CORPUSCULAR HEMOGLOBIN 27.8 pg (27.0-33.0); MEAN CORPUSCULAR HGB CONC 31.3 g/dL (32.0-36.0); MEAN CORPUSCULAR VOLUME 88.7 fL (79-99); MONOCYTES # (AUTO) 0.8 K/uL (0.1-1.0); MONOCYTES % (AUTO) 9.3 % (3.0-13.0); PLATELET COUNT (AUTO) 285 K/uL (130-400); RED BLOOD CELL COUNT(AUTO) 4.35 MIL/uL (4.50-6.20); WHITE BLOOD COUNT (AUTO) 8.3 K/uL (4.8-10.8)
[2023-11-22 11:24] LABS: CREATININE 0.6 mg/dL (0.5-1.5); POTASSIUM 4.8 mmol/L (3.5-5.1)
[2023-11-22 11:25] VITALS: BP 146/62; PULSE 86; RESP 16; O2SAT 97
[2023-11-22 11:29] LABS: ALBUMIN 3.2 g/dL (3.5-5.0); BILIRUBIN,TOTAL 0.3 mg/dL (0.2-1.0); TOTAL PROTEIN, SERUM 9.1 g/dL (6.0-8.3)
[2023-11-22 11:46] LABS: INR 0.94 (0.85-1.15); PROTHROMBIN TIME 10.9 SEC (9.6-11.6)
[2023-11-22 11:47] LABS: PARTIAL THROMBOPLASTIN TIME 22.1 SEC (26.3-35.5)
== END 2023-11-22 15:48 | disposition home or self-care (01) ==
LOC: EDH 10:09
DX: S27.818A Other injury of esophagus (thoracic part), initial encounter (principal); X58.XXXA Exposure to other specified factors, initial encounter; Y93.89 Activity, other specified; Y92.89 Other specified places as the place of occurrence of the external cause; Y99.8 Other external cause status; I10 Essential (primary) hypertension; E11.9 Type 2 diabetes mellitus without complications; Z87.19 Personal history of other diseases of the digestive system; Z79.82 Long term (current) use of aspirin; Z79.899 Other long term (current) drug therapy; Z98.890 Other specified postprocedural states; Z88.6 Allergy status to analgesic agent; Z88.8 Allergy status to other drugs, medicaments and biological substances
CPT/HCPCS: 36415; 71045; 80053; 84484; 85025; 85610; 85730; 93005